=== PATIENT | male | born 1940 | race Caucasian/White ===

== ENCOUNTER → 2020-06-22 | Outpatient (CLI) | payer MEDICARE, OTHER | LOC: GMA MATASK 14:37 | PROVIDERS: ATTEND Family Medicine | DX: R35.1 Nocturia (principal); R05 Cough ==

== ENCOUNTER → 2020-06-27 | Outpatient (CLI) | payer MEDICARE, OTHER | LOC: GMA MATASK 17:08 | PROVIDERS: ATTEND Family Medicine | DX: R06.00 Dyspnea, unspecified (principal) ==